=== PATIENT | female | born 1930 | race Two or more races ===

== ENCOUNTER 2018-08-21 20:17 | Emergency (ER) | payer OTHER ==
[~2018-08-21] VITALS: Ht 162.6 cm; Wt 65.8 kg
--- NOTE | 2018-08-21 21:17 | NUR ---
CALLED CONOR LOPEZ
[2018-08-21] MEDS ORDERED: MORPHINE SULFATE INJ 4 MG/ML DISP.SYRIN ONE ×2 (21:21→22:50)
[2018-08-21] MEDS ORDERED: ONDANSETRON HCL/PF 4 MG/2 ML VIAL ONE (21:21)
[2018-08-21] MEDS ORDERED: LORATADINE 10 MG TABLET ONE (21:22)
[2018-08-21] MEDS: ONDANSETRON HCL/PF 4 MG/2 ML VIAL IVP ONE (21:28)
[2018-08-21 21:29] LABS: BASOPHILS # (AUTO) 0.1 /CMM (0.0-0.2); BASOPHILS % (AUTO) 0.7 % (0.0-2.0); EOSINOPHILS % (AUTO) 0.5 % (0.0-6.0); HEMATOCRIT 43 % (33-45); HEMOGLOBIN 13.3 g/dL (11.5-14.8); LYMPHOCYTES # (AUTO) 1.1 /CMM (0.8-4.8); LYMPHOCYTES % (AUTO) 9.6 % (20.0-44.0); MEAN CORPUSCULAR HGB CONC 31 g/dl (31.0-36.0); MEAN CORPUSCULAR VOLUME 79 fL (82-100); MONOCYTES # (AUTO) 0.9 /CMM (0.1-1.30); MONOCYTES % (AUTO) 8.3 % (2.0-12.0); NEUTROPHILS # (AUTO) 9.2 /CMM (1.8-8.9); NEUTROPHILS % (AUTO) 80.9 % (43.0-81.0); PLATELET COUNT (AUTO) 403 /CMM (150-450); RED BLOOD CELL COUNT(AUTO) 5.41 MIL/uL (4.0-5.2); WHITE BLOOD COUNT (AUTO) 11.4 K/uL (4.3-11.0)
[2018-08-21] MEDS: LORATADINE 10 MG TABLET PO SCH (21:32)
[2018-08-21] MEDS: MORPHINE SULFATE INJ 2 MG/ML DISP.SYRIN IV ONE ×2 (21:36→22:53)
[2018-08-21 21:37] LABS: CARBON DIOXIDE 30 mmol/L (21-32); CHLORIDE 104 mmol/L (98-107); GLUCOSE 242 mg/dL (74-106); POTASSIUM 4.1 mmol/L (3.5-5.1); SODIUM SERUM 137 mmol/L (136-145); UREA NITROGEN, BLOOD 25 mg/dL (7-18)
--- NOTE | 2018-08-21 21:38 | NUR ---
[id number] FROM HOME C/C R HIP & R ANKLE PAIN S/P GLF. -HEAD TRAUMA. -NECK,BACK SHORTENNING & OUTWARD ROTATION NOTED OF RLE.100MCG FENT + 4MG ZOFR GIVEN. PT AAOX3, VSS. DENIES CP, SOB, DIZZINESS, N/V, WEAKNESS AT THIS TIME. PT SEEN & EVAL'D BY DR. GANDHI. PLACED ON FORENSIC COMPUTER EXAMINER. MEDICATED ORDERED, PT JIM WELL. DAUGHTER @ BS & WILL CONT TO MONITOR.
--- NOTE | 2018-08-21 22:22 | NUR ---
SPOKE WITH [facility] [place] [facility] PT IS ACCEPTED AT [place] BY DR Gerardo LANE, ORTHO DR DUBON; PT GOING TO [facility] ER NUMBER FOR REPORT [phone] TRANSPORT INFORMATION: [facility] - BLS TRANSPORT; ETA [id number]
[2018-08-21 23:18] VITALS: BP 147/80
--- NOTE | 2018-08-21 23:19 | NUR ---
REPORT GIVEN TO PRATIMA CORONEL AT [facility] ER. PT EN ROUTE VIA BLS FOR CONT OF CARE.
== END 2018-08-21 23:21 | disposition short-term general hospital (02) ==
LOC: ER 20:19
DX: S72.141A Displaced intertrochanteric fracture of right femur, initial encounter for closed fracture (principal); S80.211A Abrasion, right knee, initial encounter; S50.311A Abrasion of right elbow, initial encounter; Z86.73 Personal history of transient ischemic attack (TIA), and cerebral infarction without residual deficits; W01.0XXA Fall on same level from slipping, tripping and stumbling without subsequent striking against object, initial encounter; Y93.89 Activity, other specified; Y92.89 Other specified places as the place of occurrence of the external cause; Y99.8 Other external cause status
CPT/HCPCS: 36415; 51702; 71045; 73502; 80048; 85025; 85730; 93005; 96374; 96375; 96376; 99285; J2270 ×2; J2405